=== PATIENT | male | born 1985 | race Hispanic/Latino ===

== ENCOUNTER 2017-08-24 12:59 | Outpatient (CLI) | payer BC ==
[2017-08-24] MEDS ORDERED: Iopamidol 300 61% 30 ML VIAL ONE (13:35)
[2017-08-24] MEDS ORDERED: ISOVUE-370 76%-LOCM 1 ML ONE (13:35)
--- NOTE | 2017-08-24 15:47 | RAD ---
RETROGRADE URETHROGRAM: Date: 08/24/17 HISTORY: Perineal mass. COMPARISON: None. TECHNIQUE/FINDINGS: The patient was brought to the fluoroscopy suite. All questions were answered. The penis was cannulat ed and retrograde instillation of Isovue-300 was instilled into the urethra. The urethra filled nicel y. No strictures. No filling defects. No extrinsic mass effect. IMPRESSION: Normal retrograde urethrogram. POS: TI
--- NOTE | 2017-08-24 15:51 | RAD ---
FLUOROSCOPIC GUIDED CYSTOGRAM: Date: 08/24/17 HISTORY: Perineal mass TECHNIQUE/FINDINGS: Patient was brought to the fluoroscopy suite. All questions were answered. The cystogram was performe d after the retrograde urethrogram. The urinary bladder was filled with 500 mL of contrast. There was no reflux of contrast. No extrinsic mass effect upon the urinary bladder. Post-void residual was 0. On the voiding portion, the urethra was normal. IMPRESSION: Normal voiding cystourethrogram. Fluoro Time: 1 minute. POS: TI
== END 2017-08-24 13:00 | disposition home or self-care (01) ==
LOC: RAD 12:59
PROVIDERS: ATTEND Specialist
DX: N50.9 Disorder of male genital organs, unspecified (principal)
CPT/HCPCS: 51600; 51610; 74430; 74450

== ENCOUNTER 2017-08-30 07:42 | Day surgery (SDC) | payer BC ==
--- NOTE | 2017-08-29 09:30 | HP ---
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 He presents with a large perineal mass 13 x 3 cm. It is mobile to the right of midline and on rectal exam is not involved with the anus or rectum and seems separate from the urinary tract. P winifred is cystourethrogram which I believe will be normal and then plan excision under general anesthesi a in the dorsal lithotomy position. He has had this mass for more than 10 years, but is enlarging re cently and bothersome to him. ALLERGIES: None. TOBACCO: None. ALCOHOL: None. MEDICATIONS: None. PAST SURGICAL AND MEDICAL HISTORY: Noncontributory. REVIEW OF SYSTEMS: Ten point noncontributory. PHYSICAL EXAMINATION: VITAL SIGNS: 164 pounds, 61 inches, 30 BMI, 133/70, 64, 99.2 degrees. HEENT: Unremarkable. LUNGS: Clear to auscultation. CARDIAC: Regular rate and rhythm without murmur or gallop. ABDOMEN: Soft, nontender. EXTREMITIES: Unremarkable. GENITOURINARY: Testicles normal. Scrotum normal. Penis normal. RECTAL: Normal, anus normal, 13 x 3 cm sausage-like mass to the right of midline of perineum, mobile , consistent with a soft tissue mass, most likely lipoma. No evidence of infection. ASSESSMENT AND PLAN: Soft tissue mass perineum. Plan excision after checking cystourethrogram. He understands risks and benefits of procedure. We will perform this as an outpatient.
[2017-08-29 11:28] VITALS: BMI 29.2
[2017-08-30] MEDS ORDERED: CEFAZOLIN/Water 2 GM/20 ML SYRINGE ONE (08:21)
[2017-08-30] MEDS ORDERED: Ketorolac Tromethamine 30 MG/ML VIAL ONE (08:21)
[2017-08-30] MEDS ORDERED: Bupivacaine HCl 0.5%/Epinephrine 1:200,000/PF 30 ml Vial ONE (09:58)
[2017-08-30] MEDS ORDERED: Midazolam HCl 2 mg/2 ml Vial ONE (10:01)
[2017-08-30] MEDS ORDERED: HYDROmorphone 0.5 MG/0.5 ML SYRINGE ONE (10:01)
[2017-08-30] MEDS ORDERED: Promethazine HCl 25 MG/ML VIAL ONE (10:01)
--- NOTE | 2017-08-30 11:30 | OP ---
PREOPERATIVE DIAGNOSIS: Large mass perineum. POSTOPERATIVE DIAGNOSES: Large sebaceous cyst perineum to the right, 8 cm diameter oblong, elliptica l 7 cm incision, layered closure, plastics intermediate. SURGEON: Shree Subramanian M.D. ANESTHESIA: General. Local 0.5% Marcaine with epinephrine 30 mL mixed with Xylocaine, 10 mL. PROCEDURE IN DETAIL: The patient was taken to the operating room where under general anesthesia in t he dorsal lithotomy position, perineum, scrotum, penis, thighs prepared with Betadine, draped in rout ine fashion. To the right of the peritoneum between the anus and the scrotum was a large soft tissue mass. Incision was made, carried down skin and subcutaneous tissue, excised an ellipse of skin infe riorly over the markedly distended, protuberant portion. Underlying sebaceous cyst dissected free fr om surrounding soft tissue, excised, submitted to pathology. Hemostasis gained with the cautery. Wo und anesthetized with local anesthetic mixture. Subcutaneous tissues approximated with 3-0 Monocryl and skin with subdermal 4-0 Monocryl and DermaGlue applied.
[2017-08-30] MEDS ORDERED: HYDROcodone/Acetaminophen 5/325 mg Tablet ONE (13:16)
[2017-08-30] MEDS ORDERED: Lidocaine 1% PF 5 ML VIAL ONE (15:04)
[2017-08-30] MEDS ORDERED: Propofol 200 MG/20 ML VIAL ONE (15:04)
[2017-08-30] MEDS ORDERED: Ondansetron HCl/PF 4 MG/2 ML Vial ONE (15:04)
[2017-08-30] MEDS ORDERED: Glycopyrrolate 0.2 MG/ML 5 ML SYRINGE ONE (15:04)
== END 2017-08-30 13:59 | disposition home or self-care (01) ==
LOC: SDC 07:42
PROVIDERS: ATTEND Specialist
PROC: 0HQ9XZZ Repair Perineum Skin, External Approach (ICD-10-PCS; principal; 2017-08-30)
PROC: 0WB Anatomical Regions, General, Excision (ICD-10-PCS; principal; 2017-08-30)
DX: L72.0 Epidermal cyst (principal)
CPT/HCPCS: 88304; J0131; J0670; J1170; J1885; J2001; J2250; J2405; J2550; J2704

== ENCOUNTER 2024-04-12 08:37 | Emergency (ER) | payer BC, SELFPAY ==
[2024-04-12 09:32] LABS: #Basophils 0.04 10x3/uL (0.0-0.2); %Basophils 0.6 % (0.0-1.0); %Eosinophils 2.6 % (0.0-10.0); %Lymphocytes 26.5 % (21.0-51.0); %Monocytes 8.4 % (0.0-10.0); %Neutrophils 61.5 % (42.0-75.0); Hematocrit 49.8 % (42.0-52.0); Hemoglobin 17.4 g/dL (14.0-18.0); Mean Corpuscular HGB CONC 34.9 g/dL (32.0-36.0); Mean Corpuscular Hemoglobin 31.2 pg (27.0-31.0); Mean Corpuscular Volume 89.4 fL (78.0-98.0); Mean Platelet Volume 9.2 fL (7.4-10.4); Platelet Count 281 10x3/uL (130-400); RBC Distribution Width 13.5 % (11.5-14.5); Red Blood Cell (RBC) Count 5.57 mill/uL (4.70-6.10)
[2024-04-12 09:54] LABS: ALT (SGPT) 47 U/L (8-55); AST (SGOT) 26 U/L (5-34); Alkaline Phosphatase 87 U/L (40-110); Anion Gap 12 mmol/L (10-20); BUN (Urea Nitrogen) 13 mg/dL (8.9-20.6); Bilirubin, Total 0.7 mg/dL (0.2-1.2); Calc. Creatinine Clearance 0 mL/min (70-130); Calcium 9.1 mg/dL (7.8-10.44); Carbon Dioxide 21 mmol/L (22-29); Chloride 105 mmol/L (98-107); Estimated GFR 114; Globulin 3.7 g/dL (2.4-3.5); Glucose 109 mg/dL (70-105); Potassium 3.7 mmol/L (3.5-5.1); Protein, Total 7.7 g/dL (6.0-8.3); Sodium 134 mmol/L (136-145)
[2024-04-12 10:21] LABS: Troponin I Less than 0.010 ng/mL (< 0.028)
== END 2024-04-12 11:05 | disposition home or self-care (01) ==
LOC: ERS 08:37
DX: G51.0 Bell's palsy (principal); R20.2 Paresthesia of skin
CPT/HCPCS: 36415; 70450; 80053; 84484; 85025; 93005